=== PATIENT | female | born 1975 | race Caucasian/White ===

== ENCOUNTER → 2016-08-01 | Outpatient (CLI) | payer OTHER | END | disposition home or self-care (01) | LOC: CFH 13:29 | PROVIDERS: ATTEND Nurse Practitioner Primary Care | DX: I26.99 Other pulmonary embolism without acute cor pulmonale (principal); K50.90 Crohn's disease, unspecified, without complications | CPT/HCPCS: 93306 ==

== ENCOUNTER → 2016-08-24 | Outpatient (CLI) | payer OTHER ==
[~2016-08-24] MED LIST: AMOX1TAB12 PO; FLUC200T4 PO; FLUT15.88 NS; FOLI1TAB47 PO; LORA10TA3 PO; NORE5TAB PO; OMEP40CA6 PO
== END | disposition home or self-care (01) ==
LOC: STAR 08:14
PROVIDERS: ATTEND Obstetrics & Gynecology Female Pelvic Medicine and Reconstructive Surgery
DX: Z01.818 Encounter for other preprocedural examination (principal); Z30.2 Encounter for sterilization; N92.0 Excessive and frequent menstruation with regular cycle
CPT/HCPCS: 36415; 84703; 85025

== ENCOUNTER 2016-08-29 08:53 | Day surgery (SDC) | payer OTHER ==
[~2016-08-29] VITALS: Ht 167.6 cm; Wt 96.0 kg
[2016-08-29] MEDS ORDERED: LACTATED RINGERS 1,000 ML IV SCH ×2 (09:15→11:48)
[2016-08-29 09:16] VITALS: BP 125/80
[2016-08-29] MEDS ORDERED: BUPIVACAINE/PF-EPI 0.25% 1:200K ONE (10:46)
[2016-08-29] MEDS ORDERED: MIDAZOLAM 1 MG/ML, 2ML ONE (11:09)
[2016-08-29] MEDS ORDERED: FENTANYL PF 100 MCG/2ML ONE ×2 (11:09→12:32)
[2016-08-29] MEDS ORDERED: LIDOCAINE 1%, 20ML ONE (11:20)
[2016-08-29] MEDS ORDERED: KETOROLAC 30 MG/1 ML ONE (11:20)
[2016-08-29] MEDS ORDERED: PROPOFOL 10 MG/ML, 20ML ONE (11:20)
[2016-08-29] MEDS ORDERED: CEFOTETAN 2 GM ONE (11:20)
[2016-08-29] MEDS ORDERED: SILVER NITRATE STICK TP ONE (11:45)
[2016-08-29] MEDS ORDERED: IBUPROFEN 600 MG TABLET PO PRN (12:00)
[2016-08-29] MEDS ORDERED: PROMETHAZINE 25 MG SUPP PR ONE (12:00)
[2016-08-29] MEDS ORDERED: OXYcodone/APAP 5/325MG TABLET PO PRN (12:00)
[2016-08-29] MEDS ORDERED: ONDANSETRON 2MG/ML, 2ML IVPush PRN (12:00)
[2016-08-29] MEDS ORDERED: ONDANSETRON 2MG/ML, 2ML ONE (12:05)
[2016-08-29] MEDS ORDERED: MEPERIDINE/PF 25MG/0.5ML ONE (12:08)
[2016-08-29] MEDS ORDERED: OXYcodone 5 MG/5 ML ORAL.SOL UDC ONE (12:08)
[2016-08-29] MEDS ORDERED: PROMETHAZINE 25 MG/ML, 1ML IV PRN (12:30)
[2016-08-29] MEDS ORDERED: hydrALAzine 20 MG/ML, 1ML IV PRN (12:30)
[2016-08-29] MEDS ORDERED: OXYcodone 5 MG/5 ML ORAL.SOL UDC PO PRN (12:30)
[2016-08-29] MEDS ORDERED: HYDROmorphone 1 MG/ML, 1ML IV PRN (12:30)
[2016-08-29] MEDS ORDERED: FENTANYL PF 100 MCG/2ML IV PRN (12:30)
[2016-08-29] MEDS ORDERED: ACETAMINOPHEN 325 MG TABLET PO PRN (12:30)
[2016-08-29] MEDS ORDERED: METOPROLOL 1 MG/ML, 5ML IV PRN (12:30)
[2016-08-29] MEDS ORDERED: MEPERIDINE/PF 25MG/0.5ML IVPush PRN (12:30)
== END 2016-08-29 14:25 | disposition home or self-care (01) ==
LOC: OUT 08:53
PROVIDERS: ATTEND Obstetrics & Gynecology Female Pelvic Medicine and Reconstructive Surgery
DX: Z30.2 Encounter for sterilization (principal); N92.0 Excessive and frequent menstruation with regular cycle; Z86.711 Personal history of pulmonary embolism; Z87.19 Personal history of other diseases of the digestive system; Z90.49 Acquired absence of other specified parts of digestive tract; Z83.3 Family history of diabetes mellitus; K21.9 Gastro-esophageal reflux disease without esophagitis
CPT/HCPCS: 58563; 58565; J1885; J2175; J2250; J2405; J2704; J3010; J3490; J7120; S0074

== ENCOUNTER → 2017-01-03 | Outpatient (CLI) | payer OTHER | END | disposition home or self-care (01) | LOC: RAD 13:00 | PROVIDERS: ATTEND Nurse Practitioner Primary Care | DX: R10.32 Left lower quadrant pain (principal); R10.819 Abdominal tenderness, unspecified site; R53.83 Other fatigue; K50.90 Crohn's disease, unspecified, without complications; I26.99 Other pulmonary embolism without acute cor pulmonale; N39.0 Urinary tract infection, site not specified; D72.829 Elevated white blood cell count, unspecified; R79.9 Abnormal finding of blood chemistry, unspecified; K21.9 Gastro-esophageal reflux disease without esophagitis; R01.1 Cardiac murmur, unspecified; Z79.899 Other long term (current) drug therapy; Z90.49 Acquired absence of other specified parts of digestive tract | CPT/HCPCS: 74177 ==

== ENCOUNTER → 2017-01-05 | Outpatient (CLI) | payer OTHER | END | disposition home or self-care (01) | LOC: CFH 11:36 | PROVIDERS: ATTEND Nurse Practitioner Primary Care | DX: M54.5 Low back pain (principal); M54.6 Pain in thoracic spine; M25.551 Pain in right hip; Z13.220 Encounter for screening for lipoid disorders; R53.83 Other fatigue; K50.90 Crohn's disease, unspecified, without complications; I26.99 Other pulmonary embolism without acute cor pulmonale; N39.0 Urinary tract infection, site not specified; D72.829 Elevated white blood cell count, unspecified; R79.9 Abnormal finding of blood chemistry, unspecified; K21.9 Gastro-esophageal reflux disease without esophagitis; R01.1 Cardiac murmur, unspecified; Z79.899 Other long term (current) drug therapy | CPT/HCPCS: 72072; 72100; 73523 ==

== ENCOUNTER → 2017-01-11 | Outpatient (CLI) | payer OTHER | END | disposition home or self-care (01) | LOC: CFH 10:51 | PROVIDERS: ATTEND Obstetrics & Gynecology Female Pelvic Medicine and Reconstructive Surgery | DX: R10.2 Pelvic and perineal pain (principal); G89.29 Other chronic pain; K21.9 Gastro-esophageal reflux disease without esophagitis; Z79.899 Other long term (current) drug therapy | CPT/HCPCS: 76830 ==

== ENCOUNTER 2017-07-18 06:52 | Emergency (ER) | payer OTHER ==
[~2017-07-18] VITALS: Ht 167.6 cm; Wt 108.0 kg
[2017-07-18] MEDS ORDERED: [UNRECOGNIZED DRUG - OTHER] PO (07:22)
[2017-07-18] MEDS ORDERED: aloe vera PO (07:22)
[2017-07-18] MEDS ORDERED: prelief PO (07:22)
[2017-07-18] MEDS ORDERED: CHOL10002 PO (07:22)
[2017-07-18] MEDS ORDERED: SODIUM CHLORIDE FLUSH 10ML SYR IVF ONE (07:30)
[2017-07-18] MEDS ORDERED: KETOROLAC 30 MG/1 ML IVPush ONE (07:30)
[2017-07-18] MEDS ORDERED: KETOROLAC 30 MG/1 ML ONE (07:36)
[2017-07-18 08:02] LABS: BASOPHILS # (AUTO) 0.03 x10^3/uL (0-0.1); BASOPHILS % (AUTO) 0 % (0-1); EOSINOPHILS # (AUTO) 0.16 x10^3/uL (0-0.4); EOSINOPHILS % (AUTO) 2 % (1-7); LYMPHOCYTES # (AUTO) 3.13 x10^3/uL (1-3.4); LYMPHOCYTES % (AUTO) 30 % (22-44); MD NO; MEAN CORPUSCULAR HEMOGLOBIN 30.1 pg (27.0-34.8); MEAN CORPUSCULAR HGB CONC 33.8 g/dL (32.4-35.8); MEAN PLATELET VOLUME 7.4 fL (7.4-10.4); MONOCYTES # (AUTO) 0.41 x10^3/uL (0.2-0.8); MONOCYTES % (AUTO) 4 % (2-9); NEUTROPHILS # (AUTO) 6.82 x10^3/uL (1.8-6.8); NEUTROPHILS % (AUTO) 65 % (42-75); PLATELET COUNT 314 x10^3/uL (130-400); RED BLOOD COUNT 5.02 x10^6/uL (3.82-5.3); RED CELL DISTRIBUTION WIDTH 13.2 % (9.6-15.2)
[2017-07-18 08:16] LABS: ALBUMIN 3.7 g/dL (3.4-5.0); ANION GAP 7 mmol/L (5-15); CALCIUM 8.8 mg/dL (8.5-10.1); CHLORIDE 109 mmol/L (98-107); CREATININE 0.79 mg/dL (0.55-1.02)
[2017-07-18 08:20] LABS: TROPONIN I < 0.015 ng/mL (0.000-0.045)
[2017-07-18] MEDS ORDERED: PROPOFOL 100 ML IV ONE (08:47)
[2017-07-18 09:07] VITALS: BP 122/62
== END 2017-07-18 09:08 | disposition home or self-care (01) ==
LOC: ED 07:58
DX: R07.89 Other chest pain (principal); J45.909 Unspecified asthma, uncomplicated; Z86.711 Personal history of pulmonary embolism
CPT/HCPCS: 36415; 71045; 80048; 82040; 84484; 85025; 85379; 93005; 96374; 99285; J1885

== ENCOUNTER → 2017-08-18 | Outpatient (CLI) | payer OTHER ==
[~2017-08-18] MED LIST changes: +CHOL10002 PO; +[UNRECOGNIZED DRUG - OTHER] PO; +aloe vera PO; +prelief PO
== END | disposition home or self-care (01) ==
LOC: CFH 15:47
PROVIDERS: ATTEND Nurse Practitioner Primary Care
DX: E04.1 Nontoxic single thyroid nodule (principal); E03.9 Hypothyroidism, unspecified; R53.83 Other fatigue; K50.90 Crohn's disease, unspecified, without complications; D72.829 Elevated white blood cell count, unspecified; K21.9 Gastro-esophageal reflux disease without esophagitis; R01.1 Cardiac murmur, unspecified; R10.819 Abdominal tenderness, unspecified site; R79.9 Abnormal finding of blood chemistry, unspecified; Z79.899 Other long term (current) drug therapy
CPT/HCPCS: 76536

== ENCOUNTER 2019-09-22 15:14 | Emergency (ER) | payer OTHER ==
[~2019-09-22] VITALS: Ht 167.6 cm; Wt 106.8 kg
[~2019-09-22 15:14] MED LIST changes: +FLUT15.845 NS; -FLUT15.88 NS; +LORA-247 PO; -LORA10TA3 PO; +OMEP40CA42 PO; -OMEP40CA6 PO
[2019-09-22 15:37] VITALS: BP 126/61
--- NOTE | 2019-09-22 15:49 | NUR ---
THIS IS A 44 YO F SENT FROM FOR VAGINAL CYST. PT REPORTS PAIN 8/10. PT REPORTS HX OF THE SAME. PT DENIES DISCHARGE/PAIN W/ URINATION. PT RESTING ON GURNEY W/ CALL LIGHT IN REACH. SUSU AVALOS. AWAITING ED EVAL.
[2019-09-22] MEDS ORDERED: L.E.T SOLUTION TP ONE ×2 (16:20→16:30)
[2019-09-22] MEDS ORDERED: LIDOCAINE-MPF 1%, 5ML INFIL ONE (16:30)
--- NOTE | 2019-09-22 16:30 | NUR ---
LET ON AT 1625. AWARE.
[2019-09-22] MEDS ORDERED: LIDOCAINE-MPF 1%, 5ML ONE (16:31)
[2019-09-22] MEDS ORDERED: metroNIDAZOLE 500 MG TABLET PO ONE (17:30)
[2019-09-22] MEDS ORDERED: metroNIDAZOLE 500 MG TABLET ONE (17:30)
== END 2019-09-22 18:27 | disposition home or self-care (01) ==
LOC: ED 16:37
DX: N75.1 Abscess of Bartholin's gland (principal); E03.9 Hypothyroidism, unspecified; J45.909 Unspecified asthma, uncomplicated
CPT/HCPCS: 56420; 99284